=== PATIENT | male | born 1985 | race Hispanic/Latino ===

== ENCOUNTER 2019-12-06 18:02 | Emergency (ER) | payer SELFPAY ==
[~2019-12-06] VITALS: Ht 180.3 cm; Wt 104.3 kg
--- OUTSIDE RECORDS SUMMARY | 2019-12-06 18:05 | XMS REPORT | Continuity of Care Document ---
Author Author Mali Salcedo [employer] [facility] [employer] Address Unknown Phone Unavailable Care Team Providers Care Licensed Physical Therapist Name Role Phone [facility] Unavailable Un available Problems Problem Status Onset Date Classification Date Reported Comments Source Laceration without foreign body of left hand, subsequent encounter 02/14/2018 08/26/2018 LEFT INDEX FINGER Active 12/26/2017 [facility] Ex-smoker (finding) Active Problem 09/25/2018 [facility] Hand pain (finding) Active Problem 09/25/2018 [facility] Laceration of hand (disorder) Active Problem [facility] Morbid obesity (disorder) Acti ve Problem [facility] Patient encounter status (finding) Active Problem [facility] Screening status (finding) Act rachel Problem [facility] Simple obesity (disorder) Acti ve Problem [facility] Surgical follow-up (finding) A ctive Problem [facility] Pain in left hand 08/26/2018 Pain in joints of left hand 08/26/2018 [facility] Stiffness of left hand, not elsewhere classified 08/26/2018 [facility] Muscle weakness (generalized) 08/26/2018 [facility] Edema, unspecified 08/26/2018 Medications Medication Details Route Status Patient Instructions Ordering Provider Order Date Source ibuprofen 800 mg oral tablet 8 00 mg = 1 tab, PO, Q8H, PRN Pain, Take with food, X 10 day, # 30 tab, 0 Refill(s), Pharmacy: [facility] [id number] Active 01/05/2018 [facility] Allergies, Adverse Reactions, Alerts No Known Medication Allergies Immunizations No Data Provided for This Section Results No Data Provided for This Section Pathology Reports No Data Provided for This Section Diagnostic Reports No Data Provided for This Section Consultation Notes No Data Provided for This Section Discharge Summaries No Data Provided for This Section History and Physicals No Data Provided for This Section Vital Signs Vital Sign Value Date Comments Source BMI Calculated 34.96 01/05/2018 [facility] Weight 113.693 01/05/2018 [facility] Systolic (mm Hg) 135 01/05/2018 [facility] Diastolic (mm Hg) 85 01/05/2018 [facility] Heart Rate 96 01/05/2018 [facility] Respitory Rate 14 01/05/2018 [facility] Temperature Oral (F) 98.0 F 01/05/2018 [facility] Height 180.34 cm 01/05/2018 [facility] Height 180.34 cm 10/10/2017 [facility] BMI Calculated 35.69 10/10/2017 [facility] Weight 116.08 10/10/2017 [facility] Systolic (mm Hg) 123 10/10/2017 [facility] Diastolic (mm Hg) 84 10/10/2017 [facility] Temperature Oral (F) 98.6 F 10/10/2017 [facility] Respitory Rate 14 10/10/2017 [facility] Heart Rate 68 10/10/2017 [facility] Encounters Location Location Details Encounter Type Encounter Number Reason For Visit Attending Provider ADM Date DC Date Status Source Outpatient [id number] ARMINDA HERNÁNDEZ 10/10/2017 [facility] Outpatient [id number] Arminda Ash 09/2810/11/2017 [facility] Outpatient [id number] ARMINDA HERNÁNDEZ 01/05/[address] [facility] Outpatient [id number] Arminda Ash 02/201801/06/2018 [facility] OP Therapy Patients [id number] Arminda Ash 01/08/2018 02/07/2018 [facility] [place] Outpatient [id number] ARMINDA HERNÁNDEZ 02/12/2018 [facility] Ambulatory Pre-Reg [id number] Arminda Ash 02/12/2018 02/12/2018 [facility] Outpatient [id number] SELINA COTA 03/08/2018 [facility] [place] Ambulatory Pre-Reg [id number] Selinakaylin Cota 03/08/2018 03/08/2018 [facility] Procedures No Data Provided for This Section Assessment and Plan No Data Provided for This Section Plan of Care No Data Provided for This Section Social History Social History Date Source No data available for this section 02/07/2018 Social History TypeResponse Substance Abuse Use: None. Alcohol Current Smoking Status Light tobacco smoker; Exposure to Tobacco Smoke None; Cigarette Smoking Last 365 Days Yes; Reg Smoking Cessation Counseling No entered on: 01/05/18 10/10/2017 [facility] Family History No Data Provided for This Section Advance Directives No Data Provided for This Section Functional Status No Data Provided for This Section
--- OUTSIDE RECORDS SUMMARY | 2019-12-06 18:06 | XMS REPORT | Summary of Care ---
Author Author [facility] Organization [facility] Address Unknown Phone Unavailable Encounter HQ Erikntr_alijihan(FIN) [id number] Date(s): 02/12/18 - 02/12/18 [facility] [address], [address] [place] [address]- [phone] Attending Physician: Arminda Doyle MD Vital Signs No data available for this section Problem List Condition Effective Dates Status Health Status Informan t Former Active smoker(Confirmed) Left hand Active pain(Confirmed) Hand Active laceration(Confirmed ) Morbid Active obesity(Confirmed) Annual physical Active exam(Confirmed) Diabetes mellitus Active screening(Confirmed) Obesity due to Active excess calories(Confirmed) Encounter for Active removal of sutures(Confirmed) Allergies, Adverse Reactions, Alerts Substance Reaction Severity Status NKDA Active Medications No data available for this section Results No data available for this section Immunizations No data available for this section Procedures No data available for this section Social History Social History Type Response Substance Abuse Use: None. Alcohol Current Smoking Status Light tobacco smoker; Expos ure to Tobacco Smoke None; Cigarette Smoking Last 365 Days Yes; Reg Smoking Cessatio n Counseling No entered on: 01/05/18 Assessment and Plan No data available for this section
--- OUTSIDE RECORDS SUMMARY | 2019-12-06 18:06 | XMS REPORT | Summary of Care ---
Author Author [facility] Organization [facility] Address Unknown Phone Unavailable Encounter DRAKE Pool(SEBASTIÁN) [id number] Date(s): 01/05/18 - 01/05/18 [facility] [address], [address] [place] [address]- [phone] Discharge Disposition: Home or Self Care Attending Physician: Arminda Doyle MD Vital Signs Most recent to 1 oldest [Reference Range]: Height 180.34 cm (01/05/18 2:17 PM) Temperature Oral 98.0 DegF [96.4-99.1 DegF] (01/05/18 2:17 PM) Blood Pressure 135/85 mmHg [90-140/60-90 mmHg] (01/05/18 2:17 PM) Respiratory Rate 14 BRMIN [14-20 BRMIN] (01/05/18 2:17 PM) Peripheral Pulse 96 bpm Rate [60-100 bpm] (01/05/18 2:17 PM) Weight 113.693 kg (01/05/18 2:17 PM) Body Mass Index 34.96 m2 (01/05/18 2:17 PM) Problem List Condition Effective Dates Status Health Status Informan t Former Active smoker(Confirmed) Left hand Active pain(Confirmed) Hand Active laceration(Confirmed ) Morbid Active obesity(Confirmed) Annual physical Active exam(Confirmed) Diabetes mellitus Active screening(Confirmed) Obesity due to Active excess calories(Confirmed) Encounter for Active removal of sutures(Confirmed) Allergies, Adverse Reactions, Alerts Substance Reaction Severity Status NKDA Active Medications ibuprofen 800 mg oral tablet 800 mg = 1 tab, PO, Q8H, PRN Pain, Take with food, X 10 day, # 30 tab, 0 Refill( s), Pharmacy: [id number] Start Date: 01/05/18 Stop Date: 01/15/18 Status: Ordered Results No data available for this section [...]
--- OUTSIDE RECORDS SUMMARY | 2019-12-06 18:06 | XMS REPORT | Summary of Care ---
Author Author [facility] Address Unknown Phone Unavailable Encounter HQ Erikcaradoni(SEBASTIÁN) [id number] Date(s): 01/08/18 - 02/06/18 [facility] Encounter Diagnosis Laceration without foreign body of left hand, subsequent encounter (Final) - 02/14/18 Pain in left hand (Final) - Pain in joints of left hand (Final) - Stiffness of left hand, not elsewhere classified (Final) - Muscle weakness (generalized) (Final) - Edema, unspecified (Final) - Discharge Disposition: Home or Self Care Attending Physician: Arminda Doyle MD Vital Signs No data available for this section Problem List No data available for this section Allergies, Adverse Reactions, Alerts No data available for this section Medications No data available for this section Results No data available for this section Immunizations No data available for this section Procedures No data available for this section Social History No data available for this section Assessment and Plan No data available for this section
--- OUTSIDE RECORDS SUMMARY | 2019-12-06 18:06 | XMS REPORT | Summary of Care ---
Author Author [facility] Address Unknown Phone Unavailable Encounter HQ Agustinr_mary(FIN) [id number] Date(s): 03/08/18 - 03/08/18 [facility] [place] [address]- Attending Physician: Selina Cota MD Vital Signs No data available for [...]
--- OUTSIDE RECORDS SUMMARY | 2019-12-06 18:06 | XMS REPORT | Summary of Care ---
Author Author [facility] Organization [facility] Address Unknown Phone Unavailable Encounter HQ Agustinr_mary(FIN) [id number] Date(s): 10/10/17 - 10/10/17 [facility] [address], [address] [place] [address]- [phone] Discharge Disposition: Home or Self Care Attending Physician: Arminda Doyle MD Vital Signs Most recent to 1 oldest [Reference Range]: Height 180.34 cm (10/10/17 12:38 PM) Temperature Oral 98.6 DegF [96.4-99.1 DegF] (10/10/17 12:38 PM) Blood Pressure 123/84 mmHg [90-140/60-90 mmHg] (10/10/17 12:38 PM) Respiratory Rate 14 BRMIN [14-20 BRMIN] (10/10/17 12:38 PM) Peripheral Pulse 68 bpm Rate [60-100 bpm] (10/10/17 12:38 PM) Weight 116.08 kg (10/10/17 12:38 PM) Body Mass Index 35.69 m2 (10/10/17 12:38 PM) Problem List Condition Effective Dates Status Health Status Informan t Former Active smoker(Confirmed) Morbid Active obesity(Confirmed) Annual physical Active exam(Confirmed) Diabetes mellitus Active screening(Confirmed) Obesity due to Active excess calories(Confirmed) Allergies, Adverse Reactions, Alerts Substance Reaction Severity Status NKDA Active Medications No Known Medications Results No data available for this section Immunizations No data available for this section Procedures No data available for this section Social History Social History Type Response Substance Abuse Use: None. Alcohol Current Smoking Status Light tobacco smoker; Expos ure to Tobacco Smoke None; Cigarette Smoking Last 365 Days Yes; Reg Smoking Cessatio n Counseling No entered on: 10/10/17 Assessment and Plan No data available for this section
[2019-12-06] MEDS ORDERED: KETOROLAC TROMETHAMINE 30 MG/ML VIAL IV STA (18:47)
[2019-12-06] MEDS ORDERED: MORPHINE SULFATE INJ 4 MG/ML INJ 1ML IV STA (18:47)
[2019-12-06] MEDS ORDERED: ONDANSETRON HCL INJ 2MG/ML 2ML 2 MG/ML VIAL IV STA (18:47)
[2019-12-06] MEDS ORDERED: SODIUM CHLORIDE 0.9% 1000ML 1,000 ML IV STA (18:47)
[2019-12-06] MEDS ORDERED: CEFTRIAXONE SOD 1 GM/NS 50 ML 50 ML IV STA (18:47)
--- NOTE | 2019-12-06 21:26 | Diagnostic Imaging Report ---
EXAM: CT Abdomen and Pelvis WITHOUT contrast INDICATION: ^STONE PROTOCOL ^[id number] ^2005 ^Y COMPARISON: None. TECHNIQUE: Abdomen and pelvis were scanned utilizing a multidetector helical scanner from the lung base to the pubic symphysis without administration of IV contrast. Absence of intravenous contrast decreases sensitivity for detection of focal lesions and vascular pathology. Coronal and sagittal reformations were obtained. Routine protocol was performed. IV CONTRAST: None ORAL CONTRAST: Water COMPLICATIONS: None RADIATION DOSE: Total DLP: 849.13 mGy*cm Estimated effective dose: (DLP x 0.015 x size factor) mSv CTDIvol has been reviewed. It is below the limits set by the Radiation Protocol Committee (RPC). FINDINGS: LINES and TUBES: None. LOWER THORAX: Mild left basilar and right middle lobe linear atelectasis/scarring. 5 mm posterior left base nodule. HEPATOBILIARY: Unenhanced liver is unremarkable. No biliary ductal dilation. GALLBLADDER: No radio-opaque stones or sludge. No wall thickening. SPLEEN: No splenomegaly. PANCREAS: No focal masses or ductal dilatation. ADRENALS: No adrenal nodules KIDNEYS/URETERS: No hydronephrosis. Limited for evaluation of renal parenchyma without intravenous contrast. No stones. GI TRACT: No abnormal distention, wall thickening, or evidence of bowel obstruction. Appendix is normal. PELVIC ORGANS/BLADDER: Unremarkable. LYMPH NODES: No lymphadenopathy. VESSELS: Unremarkable. PERITONEUM / RETROPERITONEUM: No free air or fluid. BONES: Left femoral head is sclerotic focus, likely bone island. There are also ill-defined sclerotic foci in the left iliac bone such as in series 3, image 134. SOFT TISSUES: Unremarkable. IMPRESSION: 1. No nephrolithiasis or evidence of obstructive urolithiasis. 2. Ill-defined left iliac bone sclerotic foci are nonspecific. If clinically indicated, this can be further evaluated with nonurgent bone scan or MRI. 3. Incidentally seen 5 mm left lung base nodule. Without risk factors, no follow-up is necessary. With risk factors, follow-up with low-dose chest CT in one year is optional. Signed by: Dr. Cheng Bar MD on 12/06/2019 9:22 PM
--- NOTE | 2019-12-06 21:55 | Emergency Department Note ---
History of Present Illnes History of Present Illness Chief Complaint: Abdominal Complaints History of Present Illness This is a 33 year old male presents to the ED for 3 day h/o of lower suprapubic cramping with urinary urgency . Historian: Patient Arrival Mode: Car Onset (how long ago): day(s) (3) Radiation: abdomen (lower) Severity: moderate Duration (how long): day(s) Progression: worsening Chronicity: new Relieving factors: none Exacerbating factors: none Associated symptoms: denies other symptoms Treatments prior to arrival: none Past Medical/Family History Physician Review I have reviewed the patient's past medical and family history. Any updates have been documented here. Past Medical History Recent Fever: No Clinical Suspicion of Infectio: No New/Unexplained Change in Ment: No Past Medical History: None Other Surgery: Elbow surgery age 12 repair fx. Social History Smoking Cessation: Never Smoker Alcohol Use: None Any Illegal Drug Use: No Other Last Tetanus: Unknown Review of Systems Review of Systems Constitutional: fever EENTM: no symptoms Cardiovascular: no symptoms Respiratory: no symptoms Gastrointestinal: no symptoms Genitourinary: dysuria Musculoskeletal: no symptoms Neurological: no symptoms Psychological: no symptoms Endocrine: no symptoms Hematological/Lymphatic: no symptoms Review of other systems All other systems reviewed and negative. Physical Exam Related Data Allergies: Coded Allergies: No Known Allergies (Unverified , 12/11/16) Triage Vital Signs Vital Signs Date Time Temp Pulse Resp B/P (MAP) Pulse Ox O2 Delivery O2 Flow Rate FiO2 12/06/19 18:44 97.3 76 18 133/87 99 Vital signs reviewed: Yes Physical Exam CONSTITUTIONAL Constitutional: well-developed, well-nourished HENT HENT: normocephalic, atraumatic, oropharynx clear/moist, nose normal HENT L/R: left ext ear normal, right ext ear normal EYES Eyes: PERRL, conjunctivae normal NECK Neck: ROM normal PULMONARY Pulmonary: effort normal, breath sounds normal CARDIOVASCULAR Cardiovascular: regular rhythm, heart sounds normal, capillary refill normal, normal rate GASTROINTESTINAL Abdominal: tender (suprapubic) GENITOURINARY Genitourinary: exam deferred SKIN Skin: warm, dry MUSCULOSKELETAL Musculoskeletal: ROM normal NEUROLOGICAL Neurological: alert, oriented x 3, no gross motor or sensory deficits PSYCHOLOGICAL Psychological: mood/affect normal, judgement normal Results Imaging Imaging results reviewed: Yes Impressions [facility] [address] [address] Patient Name: PEDRO TREJO MR #: [id number] : 1985 Age/Sex: 33/M [facility] #: [id number] Req #: [id number] Adm Physician: Ordered by: JUDITH NASH MD, MD Report #: [id number] Location: ER Room/Bed: Procedure: [id number] CT/CT ABDOMEN/PELVIS WO Exam Date: 12/06/19 Exam Time: 2005 REPORT STATUS: Signed EXAM: CT Abdomen and Pelvis WITHOUT contrast INDICATION: ^STONE PROTOCOL ^[id number] ^2005 ^Y COMPARISON: None. TECHNIQUE: Abdomen and pelvis were scanned utilizing a multidetector helical scanner from the lung base to the pubic symphysis without administration of IV contrast. Absence of intravenous contrast decreases sensitivity for detection of focal lesions and vascular pathology. Coronal and sagittal reformations were obtained. Routine protocol was performed. IV CONTRAST: None ORAL CONTRAST: Water COMPLICATIONS: None RADIATION DOSE: Total DLP: 849.13 mGy*cm Estimated effective dose: (DLP x 0.015 x size factor) mSv CTDIvol has been reviewed. It is below the limits set by the Radiation Protocol Committee (RPC). FINDINGS: LINES and TUBES: None. LOWER THORAX: Mild left basilar and right middle lobe linear atelectasis/scarring. 5 mm posterior left base nodule. HEPATOBILIARY: Unenhanced liver is unremarkable. No biliary ductal dilation. GALLBLADDER: No radio-opaque stones or sludge. No wall thickening. SPLEEN: No splenomegaly. PANCREAS: No focal masses or ductal dilatation. ADRENALS: No adrenal nodules KIDNEYS/URETERS: No hydronephrosis. Limited for evaluation of renal parenchyma without intravenous contrast. No stones. GI TRACT: No abnormal distention, wall thickening, or evidence of bowel obstruction. Appendix is normal. PELVIC ORGANS/BLADDER: Unremarkable. LYMPH NODES: No lymphadenopathy. VESSELS: Unremarkable. PERITONEUM / RETROPERITONEUM: No free air or fluid. BONES: Left femoral head is sclerotic focus, likely bone island. There are also ill-defined sclerotic foci in the left iliac bone such as in series 3, image 134. SOFT TISSUES: Unremarkable. IMPRESSION: 1. No nephrolithiasis or evidence of obstructive urolithiasis. 2. Ill-defined left iliac bone sclerotic foci are nonspecific. If clinically indicated, this can be further evaluated with nonurgent bone scan or MRI. 3. Incidentally seen 5 mm left lung base nodule. Without risk factors, no follow-up is necessary. With risk factors, follow-up with low-dose chest CT in one year is optional. Signed by: Dr. Cheng Lopez MD on 12/06/2019 9:22 PM Dictated By: CHENG LOPEZ MD 21 Transcribed By: DEEPA on 12/06/192121 COPY TO: JUDITH NASH~ Assessment & Plan Reassessment Reassessment Patient presents to the ED for lower abd pain with urgency. Unable to submit urine for testing. Plan to empirically treat patient for possible UTI. CTS r eviewed with patient Assessment & Plan Final Impression: (1) Suprapubic pain Depart Disposition: HOME, SELF-CARE Last Vital Signs Date Time Temp Pulse Resp B/P (MAP) Pulse Ox O2 Delivery O2 Flow Rate FiO2 12/06/19 18:44 97.3 76 18 133/87 99 Home Meds No Active Prescriptions or Reported Meds Medications in the ED Sodium Chloride 1,000 ml @ 0 mls/hr Q0M STAT IV ; Start 12/06/19 at 18:47; Stop 12/06/19 at 18:49; Status DC Ceftriaxone Sodium 50 ml @ 50 mls/hr ONCE STAT IV ; Start 12/06/19 at 18:47; Stop 12/06/19 at 19:46; Status DC Morphine Sulfate 4 mg ONCE STAT IV ; Start 12/06/19 at 18:47; Stop 12/06/19 at 18:56; Status DC Ondansetron HCl 4 mg ONCE STAT IV ; Start 12/06/19 at 18:47; Stop 12/06/19 at 18:57; Status DC Ketorolac Tromethamine 30 mg ONCE STAT IV ; Start 12/06/19 at 18:47; Stop 12/06/19 at 18:56; Status DC MAO SHANNON DO Dec 06, 2019 21:55
== END 2019-12-06 22:22 | disposition home or self-care (01) ==
LOC: ER 18:02
DX: R10.30 Lower abdominal pain, unspecified (principal); R39.15 Urgency of urination; R91.8 Other nonspecific abnormal finding of lung field
CPT/HCPCS: 74176; 99283

== ENCOUNTER 2024-05-23 01:13 | Emergency (ER) | payer SELFPAY ==
[~2024-05-23] VITALS: Ht 180.3 cm; Wt 113.4 kg
[2024-05-23] MEDS: ACETAMINOPHEN 1000 MG/100 ML IV STA (01:39)
[2024-05-23] MEDS: SODIUM CHLORIDE 0.9% 1000ML 1,000 ML IV ONE (01:39)
[2024-05-23] MEDS: ONDANSETRON HCL INJ 2MG/ML 2ML 2 MG/ML VIAL IV STA (01:40)
[2024-05-23 02:03] LABS: BASOPHILS # (AUTO) 0.1 (0.0-0.1); BASOPHILS % 0.3 % (0.0-1.0); HEMATOCRIT 44.9 % (38.2-49.6); HEMOGLOBIN 14.6 g/dL (14.0-18.0); LYMPHOCYTES # (AUTO) 1.2 (1.0-3.2); LYMPHOCYTES % 7.5 % (18.0-39.1); MEAN CORPUSCULAR HEMOGLOBIN 29.5 pg (28-32); MEAN CORPUSCULAR HGB CONC 32.5 g/dL (31-35); MEAN CORPUSCULAR VOLUME 90.7 fL (81-99); MONOCYTES % 6.5 % (4.4-11.3); NEUTROPHILS % 85.2 % (38.7-80.0); PLATELET COUNT 181 x10e3/uL (140-360); RED BLOOD COUNT 4.95 x10e6/uL (4.3-5.7); RED CELL DISTRIBUTION WIDTH 13.6 % (11.7-14.4); WHITE BLOOD COUNT 15.27 x10e3/uL (4.8-10.8)
[2024-05-23 02:08] LABS: BILIRUBIN,URINE NEGATIVE (NEGATIVE); CLARITY,URINE CLEAR (CLEAR); COLOR,URINE YELLOW (YELLOW); GLUCOSE, URINE NEGATIVE (NEGATIVE); KETONES,URINE TRACE (NEGATIVE); LEUKOCYTE ESTERASE ,URINE NEGATIVE (NEGATIVE); NITRITE,URINE NEGATIVE (NEGATIVE); PH,URINE 8.5 (5 - 7); PROTEIN,URINE DIPSTICK TRACE (NEGATIVE)
[2024-05-23 02:23] LABS: ALBUMIN 4.1 g/dL (3.5-5.0); ALBUMIN/GLOBULIN RATIO 1.1 (0.8-2.0); ANION GAP 15.6 mmol/L (8-16); BILIRUBIN,TOTAL 0.7 mg/dL (0.2-1.2); CALCIUM 9.4 mg/dL (8.4-10.2); CREATININE, SERUM 0.81 mg/dL (0.72-1.25); POTASSIUM 3.6 mmol/L (3.5-5.1); TOTAL PROTEIN 7.9 g/dL (6.5-8.1)
[2024-05-23 02:38] LABS: BACTERIA,URINE FEW /HPF; EPITHELIAL CELLS,URINE FEW /LPF; MUCUS,URINE MANY (RARE); RBC,URINE 0-5 /HPF (0-5); TRANSITIONAL EPI CELLS,URINE FEW; WBC,URINE (MAN) 0-5 /HPF (0-5)
[2024-05-23] MEDS ORDERED: IOPAMIDOL 370 MG/ML 100 ML INFUS..BTL INJ ONE (03:08)
[2024-05-23 03:30] VITALS: PULSE 80; RESP 20; TEMP 98.5
[2024-05-23] MEDS ORDERED: ONDANSETRON ODT4 MG SL (03:36)
[2024-05-23] MEDS ORDERED: DICYCLOMINE HCL20 MG PO (03:36)
[2024-05-23] MEDS ORDERED: PANTOPRAZOLE SO40 MG PO (03:36)
[2024-05-23 03:53] VITALS: BP 153/89; O2SAT 98
[2024-05-23 04:05] LABS: CORONAVIRUS COVID-19 AG NEGATIVE (NEGATIVE); INFLUENZA A AG NEGATIVE (NEGATIVE); INFLUENZA B AG NEGATIVE (NEGATIVE)
== END 2024-05-23 03:49 | disposition home or self-care (01) ==
LOC: ER 01:27
DX: R50.9 Fever, unspecified (principal); B34.9 Viral infection, unspecified; R11.2 Nausea with vomiting, unspecified; R10.30 Lower abdominal pain, unspecified
CPT/HCPCS: 36415; 71045; 74177; 80053; 81001; 83605; 83690; 85025; 87040; 87086; 87428; 99284; J0131; J2405; J2543; J7030; Q9967